=== PATIENT | male | born 1965 ===

== ENCOUNTER 2020-12-08 16:41 | Emergency (ER) | payer OTHER ==
[~2020-12-08] VITALS: Ht 188 cm; Wt 83.0 kg
[2020-12-08 17:25] VITALS: BP 114/77
[2020-12-08 18:24] LABS: BASOPHILS % (AUTO) 0.5 % (0-1); EOSINOPHILS # (AUTO) 0.3 X10'3 (0-0.9); EOSINOPHILS % (AUTO) 3.8 % (0-6); HEMATOCRIT 43.3 % (42.0-52.0); LYMPHOCYTES # (AUTO) 1.3 X10'3 (1.1-4.8); LYMPHOCYTES % (AUTO) 19.5 % (21-51); MEAN CORPUSCULAR HEMOGLOBIN 32.7 PG (27.0-31.0); MEAN CORPUSCULAR HGB CONC 34.7 g/dL (33.0-36.5); MEAN CORPUSCULAR VOLUME 94.3 FL (78-98); MEAN PLATELET VOLUME 6.5 FL (7.4-10.4); MONOCYTES % (AUTO) 14.2 % (2-12); NEUTROPHILS # (AUTO) 4.3 X10'3 (1.8-7.7); PLATELET COUNT 251 X10'3 (140-440); RED CELL DISTRIBUTION WIDTH 13.2 % (11.5-14.5); WHITE BLOOD COUNT 6.9 X10'3 (4.5-11.0)
[2020-12-08 18:28] LABS: ALANINE AMINOTRANSFERASE 18 U/L (12-78); ALBUMIN 3.8 G/DL (3.4-5.0); ALBUMIN/GLOBULIN RATIO 0.9 (1.1-1.5); ALKALINE PHOSPHATASE 44 IU/L (46-116); ANION GAP 9 (8-16); ASPARTATE AMINO TRANSFERASE 14 U/L (10-37); BILIRUBIN,TOTAL 0.5 MG/DL (0.1-1.0); BLOOD UREA NITROGEN 15 MG/DL (7-18); BUN/CREATININE RATIO 12.2 (5.4-32.0); CALCIUM 9.1 MG/DL (8.5-10.1); CHLORIDE 102 MMOL/L (99-107); CREATININE 1.23 MG/DL (0.60-1.10); GLUCOSE 99 MG/DL (70-104); POTASSIUM 4.7 MMOL/L (3.5-5.1); SODIUM 139 MMOL/L (135-145); TOTAL CARBON DIOXIDE 28.1 MMOL/L (24-32); TOTAL PROTEIN 8.2 G/DL (6.4-8.2); eGFR 61 ML/MIN
--- NOTE | 2020-12-08 19:57 | NUR ---
pt left due to wait time.
== END 2020-12-08 19:58 | disposition left against medical advice (07) ==
LOC: ER 16:42
DX: R07.9 Chest pain, unspecified (principal); Z53.21 Procedure and treatment not carried out due to patient leaving prior to being seen by health care provider
CPT/HCPCS: 36415; 71045; 80053; 83880; 84484; 85025; 93005